=== PATIENT | male | born 1980 | race Two or more races ===

== ENCOUNTER 2022-10-28 05:45 | Emergency (ER) | payer MEDICAID, OTHER ==
[~2022-10-28] VITALS: Ht 180.3 cm; Wt 120.0 kg
[2022-10-28 07:02] LABS: Basophils # (auto) 0.1 10 ^3/uL (0-0.2); Basophils % (auto) 0.5 % (0.0-2.0); Eosinophils # (auto) 0.2 10 ^3/uL (0-0.8); Eosinophils % (auto) 1.4 % (0.0-7.0); Hematocrit 39.2 % (41.0-53.0); Hemoglobin 13.9 g/dL (13.5-17.5); Lymphocytes # (auto) 2.2 10 ^3/uL (0.4-5.4); Lymphocytes % (auto) 19.6 % (10.0-50.0); Mean Corpuscular Hemoglobin 29.5 pg (28.0-32.0); Mean Corpuscular Hgb Conc. 35.3 g/dL (32.0-36.0); Mean Corpuscular Volume 83.5 fL (80.0-100.0); Monocytes # (auto) 1.4 10 ^3/uL (0-1.3); Monocytes % (auto) 12.4 % (0.0-12.0); Neutrophils # (auto) 7.3 10 ^3/uL (1.6-8.6); Neutrophils % (auto) 66.1 % (37.0-80.0); Nucleated Red Blood Cells % 0.5 %; Red Cell Distribution Width 13.1 % (11.8-14.3)
[2022-10-28 07:21] LABS: INR 1.01 (0.9-1.15); Partial Thromboplastin Time 26.6 sec (24.6-33.4)
[2022-10-28 07:26] LABS: Calcium 8.9 mg/dL (8.5-10.1); Magnesium 1.9 mg/dL (1.6-2.6); Potassium 3.6 mmol/L (3.5-5.1)
[2022-10-28 07:49] LABS: BUN/Creatinine Ratio 15.8 (10.0-20.0); Bilirubin, Total 0.6 mg/dL (0.2-1.0); Total Protein 7.2 g/dL (6.4-8.2)
[2022-10-28 08:43] LABS: Urine Bacteria FEW /hpf (None Seen); Urine Blood Negative /uL (Negative); Urine Hyaline Cast FEW /lpf (0 - 2); Urine Specific Gravity 1.021 (1.001-1.035); Urine WBC 1 /hpf (0 - 3)
[2022-10-28 09:25] LABS: Amphetamine Screen, Urine NEGATIVE (NEGATIVE); Barbiturate Scree,Urine NEGATIVE (NEGATIVE); Benzodiazephine Screen, Urine NEGATIVE (NEGATIVE); Cannabinoid Screen, Urine NEGATIVE (NEGATIVE); Cocaine Screen, Urine NEGATIVE (NEGATIVE); Opiate Scree,Urine NEGATIVE (NEGATIVE); Phencyclidine Screen, Urine NEGATIVE (NEGATIVE)
[2022-10-28 09:33] VITALS: BP 131/81
== END 2022-10-28 09:45 | disposition home or self-care (01) ==
LOC: ER 05:45 → EDBD 05:45 → ER 09:45
DX: I47.1 Supraventricular tachycardia (principal); I10 Essential (primary) hypertension; E78.5 Hyperlipidemia, unspecified; E11.9 Type 2 diabetes mellitus without complications
CPT/HCPCS: 36415; 71045; 80053; 80307; 81001; 83735; 83880; 84484; 85025; 85610; 85730; 93005

== ENCOUNTER 2023-06-08 04:03 | Emergency (ER) | payer MEDICAID, OTHER ==
[~2023-06-08] VITALS: Ht 180.3 cm; Wt 111.0 kg
[2023-06-08 04:15] VITALS: PULSE 185; RESP 26; O2SAT 96
[2023-06-08 04:23] LABS: Basophils # (auto) 0.1 10 ^3/uL (0-0.2); Basophils % (auto) 0.5 % (0.0-2.0); Eosinophils # (auto) 0.3 10 ^3/uL (0-0.8); Eosinophils % (auto) 3.2 % (0.0-7.0); Hematocrit 44.7 % (41.0-53.0); Hemoglobin 15.7 g/dL (13.5-17.5); Lymphocytes # (auto) 3.2 10 ^3/uL (0.4-5.4); Lymphocytes % (auto) 29.6 % (10.0-50.0); Mean Corpuscular Hemoglobin 29.7 pg (28.0-32.0); Monocytes # (auto) 1.2 10 ^3/uL (0-1.3); Monocytes % (auto) 10.8 % (0.0-12.0); Neutrophils # (auto) 6.1 10 ^3/uL (1.6-8.6); Neutrophils % (auto) 55.9 % (37.0-80.0); Nucleated Red Blood Cells % 0.1 %; Red Blood Cells 5.26 10^6/uL (4.5-5.90); Red Cell Distribution Width 13.2 % (11.8-14.3); White Blood Cell 10.9 10^3/uL (4.4-10.8)
[2023-06-08 04:42] LABS: INR 0.98 (0.9-1.15); Partial Thromboplastin Time 26.4 SEC (24.5-34.5); Prothrombin Time 10.3 sec (9.3-11.8)
[2023-06-08 04:47] LABS: Alanine Aminotransferase 27 U/L (7-40); Albumin 4.6 g/dL (3.2-4.8); Alkaline Phosphatase 73 U/L (46-116); Anion Gap 5 (5-15); Aspartate Aminotransferase 30 U/L (13-40); BUN/Creatinine Ratio 9.7 (10.0-20.0); Blood Urea Nitrogen 11 mg/dL (9-23); Calcium 9.6 mg/dL (8.7-10.4); Carbon Dioxide 28 mmol/L (20-30); Chloride 103 mmol/L (98-107); Glucose 172 mg/dL (74-106); Potassium 3.5 mmol/L (3.5-5.1); Sodium 136 mmol/L (136-145)
[2023-06-08 04:48] LABS: Bilirubin, Total 0.6 mg/dL (0.2-1.0); Total Protein 7.5 g/dL (5.7-8.2)
[2023-06-08 05:00] VITALS: BP 112/77; PULSE 69; RESP 19; O2SAT 95
== END 2023-06-08 05:05 | disposition home or self-care (01) ==
LOC: ER 04:03
DX: I47.10 Supraventricular tachycardia, unspecified (principal); E11.9 Type 2 diabetes mellitus without complications; I10 Essential (primary) hypertension
CPT/HCPCS: 36415; 80053; 83880; 84484; 85025; 85610; 85730; 93005

== ENCOUNTER 2023-09-14 02:22 | Emergency (ER) | payer OTHER ==
[~2023-09-14] VITALS: Ht 167.6 cm; Wt 100.0 kg
[2023-09-14 03:33] LABS: Urine Bacteria None Seen /hpf (None Seen)
[2023-09-14 03:42] LABS: Basophils # (auto) 0 10 ^3/uL (0-0.2); Basophils % (auto) 0.5 % (0.0-2.0); Eosinophils # (auto) 0.3 10 ^3/uL (0-0.8); Eosinophils % (auto) 4.2 % (0.0-7.0); Hematocrit 41.3 % (41.0-53.0); Hemoglobin 14.3 g/dL (13.5-17.5); Lymphocytes % (auto) 24.7 % (10.0-50.0); Mean Corpuscular Hgb Conc. 34.5 g/dL (32.0-36.0); Monocytes # (auto) 0.6 10 ^3/uL (0-1.3); Monocytes % (auto) 8.1 % (0.0-12.0); Neutrophils # (auto) 4.9 10 ^3/uL (1.6-8.6); Neutrophils % (auto) 62.5 % (37.0-80.0); Nucleated Red Blood Cells % 0.1 %; Red Blood Cells 4.92 10^6/uL (4.5-5.90); White Blood Cell 7.9 10^3/uL (4.4-10.8)
[2023-09-14 03:49] LABS: Urine Blood Negative /uL (Negative); Urine Clarity Clear (Clear); Urine Protein, UAD Negative (Negative); Urine Specific Gravity 1.007 (1.001-1.035); Urine Urobilinogen Normal (Negative); Urine WBC <1 /hpf (0 - 3); Urine pH 5.5 (5.0-9.0)
[2023-09-14 03:50] LABS: Urine Color Straw (Yellow)
[2023-09-14 04:02] LABS: Alanine Aminotransferase 42 U/L (7-40); Albumin 4.4 g/dL (3.2-4.8); Alkaline Phosphatase 67 U/L (46-116); Anion Gap 5 (5-15); Aspartate Aminotransferase 52 U/L (13-40); BUN/Creatinine Ratio 12.5 (10.0-20.0); Bilirubin, Total 0.5 mg/dL (0.2-1.0); Blood Urea Nitrogen 13 mg/dL (9-23); Calcium 10.1 mg/dL (8.7-10.4); Carbon Dioxide 30 mmol/L (20-30); Chloride 101 mmol/L (98-107); Glucose 221 mg/dL (74-106); Potassium 3.7 mmol/L (3.5-5.1); Sodium 136 mmol/L (136-145); Total Protein 7.2 g/dL (5.7-8.2)
[2023-09-14] MEDS ORDERED: METO25TA93 PO (04:31)
[2023-09-14] MEDS ORDERED: LOSA-534 PO (04:31)
[2023-09-14 05:01] VITALS: BP 140/94; PULSE 94; RESP 18; TEMP 98.8; O2SAT 95
== END 2023-09-14 05:03 | disposition home or self-care (01) ==
LOC: ER 02:22 → EDBD 02:22 → ER 05:03
DX: I47.19 Other supraventricular tachycardia (principal); I10 Essential (primary) hypertension; E11.9 Type 2 diabetes mellitus without complications
CPT/HCPCS: 36415; 71045; 80053; 81001; 84484; 85025; 93005

== ENCOUNTER 2023-11-03 09:15 | Inpatient (IN) | payer OTHER ==
[~2023-11-03] VITALS: Ht 182.9 cm; Wt 112.8 kg
[~2023-11-03 09:15] MED LIST: LOSA-534 PO; METO25TA93 PO
[2023-11-03 09:23] VITALS: PULSE 206; RESP 15; O2SAT 95
[2023-11-03] MEDS: dilTIAZem 125mg/125ml BAG KIT 100 ML IV SCH (09:30)
[2023-11-03] MEDS: dilTIAZem 25 MG/5 ML VIAL IV ONE ×2 (09:36→09:37)
[2023-11-03] MEDS: dilTIAZem 125mg/125ml BAG KIT 125 ML IV ONE (09:39)
[2023-11-03] MEDS: SODIUM CHLORIDE 0.9% 1,000 ML IV ONE ×2 (09:45→10:37)
[2023-11-03 10:10] LABS: Basophils # (auto) 0.1 10 ^3/uL (0-0.2); Basophils % (auto) 0.6 % (0.0-2.0); Eosinophils # (auto) 0.4 10 ^3/uL (0-0.8); Eosinophils % (auto) 4.2 % (0.0-7.0); Hematocrit 43.9 % (41.0-53.0); Hemoglobin 15.1 g/dL (13.5-17.5); Lymphocytes # (auto) 2.5 10 ^3/uL (0.4-5.4); Lymphocytes % (auto) 24.6 % (10.0-50.0); Mean Corpuscular Hemoglobin 29.6 pg (28.0-32.0); Mean Corpuscular Hgb Conc. 34.3 g/dL (32.0-36.0); Mean Corpuscular Volume 86.2 fL (80.0-100.0); Monocytes % (auto) 10.2 % (0.0-12.0); Neutrophils # (auto) 6.2 10 ^3/uL (1.6-8.6); Neutrophils % (auto) 60.4 % (37.0-80.0); Nucleated Red Blood Cells % 0.2 %; Red Blood Cells 5.09 10^6/uL (4.5-5.90); Red Cell Distribution Width 12.9 % (11.8-14.3); White Blood Cell 10.3 10^3/uL (4.4-10.8)
[2023-11-03 10:25] LABS: Chloride 104 mmol/L (98-107); Potassium 4.1 mmol/L (3.5-5.1); Sodium 137 mmol/L (136-145)
[2023-11-03 10:26] LABS: Anion Gap 7 (5-15); Calcium 10.3 mg/dL (8.5-10.1); Carbon Dioxide 26 mmol/L (20-30)
[2023-11-03 10:31] LABS: BUN/Creatinine Ratio 9.2 (10.0-20.0); Blood Urea Nitrogen 11 mg/dL (9-23); Glucose 186 mg/dL (74-106)
[2023-11-03] MEDS: ASPirin 325 MG TAB PO ONE (10:39)
[2023-11-03] MEDS: NITROGLYCERIN 0.4 MG SL TAB SL ONE (10:40)
[2023-11-03] MEDS ORDERED: HYDROmorphone HCL 2 MG/ML VL/or syr IV PRN ×2 (14:15→14:30)
[2023-11-03] MEDS ORDERED: dilTIAZem 25 MG/5 ML VIAL IV PRN ×2 (14:15→14:30)
[2023-11-03] MEDS ORDERED: DOCUSATE SOD 100 MG CAP PO PRN ×2 (14:15→14:30)
[2023-11-03] MEDS ORDERED: ONDANSETRON HCL 4 MG/2 ML VIAL IV PRN ×2 (14:15→14:30)
[2023-11-03] MEDS ORDERED: LEVOTHYROXINE SODIUM 50 MCG TAB PO ONE (14:15)
[2023-11-03] MEDS ORDERED: HYDROcodone-ACET 5/325MG TAB PO PRN ×2 (14:15→14:30)
[2023-11-03] MEDS ORDERED: METOPROLOL TARTRATE 25 MG TAB PO SCH (14:15)
[2023-11-03] MEDS ORDERED: ACETAMINOPHEN 325 MG TAB PO PRN ×2 (14:15→14:30)
[2023-11-03] MEDS: ENOXAPARIN SOD 100 MG/1 ML SYRINGE SC ONE (15:03)
[2023-11-03 15:16] LABS: Urine Bacteria None Seen /hpf (None Seen)
[2023-11-03] MEDS: LEVOTHYROXINE SODIUM 25 MCG TAB PO ONE (15:35)
[2023-11-03 15:38] LABS: Amphetamine Screen, Urine Neg (NEGATIVE); Barbiturate Scree,Urine Neg (NEGATIVE); Benzodiazephine Screen, Urine Neg (NEGATIVE); Cocaine Screen, Urine Neg (NEGATIVE); Opiate Scree,Urine Neg (NEGATIVE)
[2023-11-03 15:39] LABS: Cannabinoid Screen, Urine Neg (NEGATIVE); Phencyclidine Screen, Urine Neg (NEGATIVE)
[2023-11-03] MEDS ORDERED: OME20T PO (15:40)
[2023-11-03] MEDS ORDERED: LOSA-534 PO (15:40)
[2023-11-03] MEDS ORDERED: ROSU20TA14 PO (15:40)
[2023-11-03] MEDS ORDERED: LEVO125T7 PO (15:40)
[2023-11-03] MEDS ORDERED: ALLO100T PO (15:40)
[2023-11-03] MEDS ORDERED: METF-371 PO (15:40)
[2023-11-03] MEDS ORDERED: METO-289 PO (15:40)
[2023-11-03 15:44] LABS: Magnesium 1.6 mg/dL (1.6-2.6); Triglycerides 584 mg/dL (< 150)
[2023-11-03 15:45] LABS: Urine Blood Negative /uL (Negative); Urine Clarity Clear (Clear); Urine Color Light-Yellow (Yellow); Urine Mucus FEW (None Seen); Urine Protein, UAD Negative (Negative); Urine Specific Gravity 1.017 (1.001-1.035); Urine Urobilinogen Normal (Negative); Urine WBC 1 /hpf (0 - 3)
[2023-11-03 15:46] LABS: Cholesterol 175 mg/dL (< 200); HDL Cholesterol 36 mg/dL (40-59)
[2023-11-03] MEDS: MAGNESIUM SULFATE 1GM/100ML 100 ML IV SCH (17:04)
[2023-11-03 22:00] VITALS: BP 125/83; PULSE 68; RESP 14; TEMP 98.6; O2SAT 96
[2023-11-03] MEDS ORDERED: SODIUM CHLOR 0.9% PF (SALINE LOCK) 10ML VIAL/SYR IV SCH (22:00)
[2023-11-03 22:18] VITALS: BP 125/83; PULSE 68; RESP 14; TEMP 98.6; O2SAT 98
[2023-11-03 22:47] VITALS: BP 125/83; PULSE 68; RESP 14; TEMP 98.6; O2SAT 98
[2023-11-03] MEDS ORDERED: GLIP5TAB21 PO (22:56)
[2023-11-03] MEDS: ATORVASTATIN 20 MG TAB PO SCH (23:19)
[2023-11-03] MEDS: METOPROLOL TARTRATE 25 MG TAB PO SCH (23:20)
[2023-11-03] MEDS: SODIUM CHLOR 0.9% PF (SALINE LOCK) 10ML VIAL/SYR IV SCH (23:23)
[2023-11-04 01:00] VITALS: BP 146/88; PULSE 76; RESP 16; TEMP 98.2; O2SAT 95
[2023-11-04 05:00] VITALS: BP 118/73; PULSE 64; RESP 14; TEMP 98.3; O2SAT 96
[2023-11-04 07:23] LABS: Basophils # (auto) 0 10 ^3/uL (0-0.2); Basophils % (auto) 0.4 % (0.0-2.0); Eosinophils # (auto) 0.3 10 ^3/uL (0-0.8); Eosinophils % (auto) 4.4 % (0.0-7.0); Hematocrit 38.8 % (41.0-53.0); Hemoglobin 13.6 g/dL (13.5-17.5); Lymphocytes # (auto) 1.9 10 ^3/uL (0.4-5.4); Lymphocytes % (auto) 27.4 % (10.0-50.0); Mean Corpuscular Hemoglobin 29.5 pg (28.0-32.0); Mean Corpuscular Volume 84.2 fL (80.0-100.0); Monocytes # (auto) 0.6 10 ^3/uL (0-1.3); Monocytes % (auto) 9.4 % (0.0-12.0); Neutrophils % (auto) 58.4 % (37.0-80.0); Red Blood Cells 4.61 10^6/uL (4.5-5.90); Red Cell Distribution Width 12.9 % (11.8-14.3); White Blood Cell 6.8 10^3/uL (4.4-10.8)
[2023-11-04 07:38] LABS: Alanine Aminotransferase 37 U/L (7-40); Anion Gap 7 (5-15); Aspartate Aminotransferase 54 U/L (13-40); BUN/Creatinine Ratio 12.9 (10.0-20.0); Blood Urea Nitrogen 12 mg/dL (9-23); Calcium 9.5 mg/dL (8.5-10.1); Carbon Dioxide 25 mmol/L (20-30); Chloride 106 mmol/L (98-107); Glucose 149 mg/dL (74-106); Magnesium 1.9 mg/dL (1.6-2.6); Potassium 3.9 mmol/L (3.5-5.1); Sodium 138 mmol/L (136-145)
[2023-11-04 08:00] VITALS: PULSE 64
[2023-11-04] MEDS: ENOXAPARIN SOD 40 MG/0.4 ML SYRINGE SC SCH (09:16)
[2023-11-04] MEDS: LOSARTAN POTASSIUM 50 MG TAB PO SCH (09:17)
[2023-11-04] MEDS: MAGNESIUM SULFATE 1GM/100ML 100 ML IV ONE (09:18)
[2023-11-04 09:20] VITALS: BP 132/82; PULSE 71; RESP 16; TEMP 97.5; O2SAT 95
[2023-11-04] MEDS ORDERED: LOSARTAN POTASSIUM 50 MG TAB PO SCH (10:00)
[2023-11-04] MEDS ORDERED: ENOXAPARIN SOD 40 MG/0.4 ML SYRINGE SC SCH (10:00)
[2023-11-04 13:23] VITALS: BP 139/90; PULSE 72; RESP 18; TEMP 98.3; O2SAT 97
== END 2023-11-04 14:40 | disposition home or self-care (01) | DRG 282 ==
LOC: ER 09:15 → TELE 14:10 → ER 14:10 → TELE-WESTW 22:18
PROVIDERS: ADMIT Internal Medicine; ATTEND Internal Medicine
DX: I47.19 Other supraventricular tachycardia (principal); I21.A1 Myocardial infarction type 2; M10.9 Gout, unspecified; I10 Essential (primary) hypertension; E66.01 Morbid (severe) obesity due to excess calories; E03.9 Hypothyroidism, unspecified; E11.9 Type 2 diabetes mellitus without complications; K21.9 Gastro-esophageal reflux disease without esophagitis; E83.42 Hypomagnesemia; E78.1 Pure hyperglyceridemia; F10.10 Alcohol abuse, uncomplicated; Y90.9 Presence of alcohol in blood, level not specified; Z79.899 Other long term (current) drug therapy; Z68.33 Body mass index [BMI] 33.0-33.9, adult; Z71.41 Alcohol abuse counseling and surveillance of alcoholic
CPT/HCPCS: 36415; 71045; 80048; 80061; 80307; 81001; 83036; 83735; 84439; 84443; 84450; 84460; 84484; 85025; 93306; 99291; G0378

== ENCOUNTER 2024-10-17 19:24 | Emergency (ER) | payer OTHER ==
[~2024-10-17] VITALS: Ht 180.3 cm; Wt 109.0 kg
[~2024-10-17 19:24] MED LIST changes: +ALLO100T PO; +GLIP5TAB21 PO; +LEVO125T7 PO; +METF-371 PO; +METO-289 PO; -METO25TA93 PO; +OME20T PO; +ROSU20TA14 PO
[2024-10-17 19:45] VITALS: TEMP 99.2
[2024-10-17] MEDS: SODIUM CHLORIDE 0.9% 1,000 ML IV ONE ×2 (19:45→22:11)
[2024-10-17] MEDS: METOPROLOL TARTRATE 1MG/1ML-5ML VIAL IV SCH (19:45)
--- NOTE | 2024-10-17 19:46 | ED.PDOC ---
HPI Comments 44-year-old male who came to ER for palpitations. History of hypertension, diabetes and SVTs. Patient claims he has good compliance to his medications. About 45 minutes prior to arrival, patient bent over to mushroom picker something when he developed sudden onset left sided chest pains, sharp, constant, non radiating, 7/10 intensity, associated with palpitations. Denies any shortness of breath. Heart rate monitored was over 200 bpm Chief Complaint: Palpitations Time Seen by MD: 19:45 Reviewed Notes: Nurses Notes Allergies: Coded Allergies: NO KNOWN ALLERGIES (Unverified , 10/28/22) Home Meds Reported Medications Glipizide (Glipizide) 5 Mg Tab, 5 MG PO DAILYPRN, TAB 11/03/23 Levothyroxine Sodium (Levothyroxine Sodium) 125 Mcg Tab, 125 MCG PO QAM for 30 Days, MCG 11/03/23 Metformin Hydrochloride (Metformin Hcl) 850 Mg Tab, 850 MG PO BID for 30 Days, MG 11/03/23 Allopurinol (Allopurinol) 100 Mg Tab, 100 MG PO DAILY, MG 11/03/23 Losartan Potassium (Losartan Potassium) 50 Mg Tab, 50 MG PO BID for 30 Days, MG 11/03/23 Metoprolol Succinate (Metoprolol Succinate Er) 50 Mg Tab, 1 TAB PO BID, #30 TAB 5 Refills 11/03/23 Omeprazole (Omeprazole) 20 Mg Cap, 20 MG PO DAILY, CAP 11/03/23 Rosuvastatin Calcium (Crestor) 20 Mg Tab, 1 TAB PO DAILY, #30 TAB 5 Refills 11/03/23 Information Source: Patient Mode of Arrival: EMS Severity: Moderate Timing: Minutes Duration: Since onset Location: Chest (L) Radiation: No Radiation Quality: Sharp Onset: With Light Exertion Cardiac Risk Factors: HTN, Diabetes, Other (SVT) History of: Similar pain in past Associated Signs and Symptoms: Palpitations Review of Systems REVIEW OF SYSTEMS: No fever, no chills, or fatigue HEENT: No sore throat, no earache, no congestion, no neck pain. Cardiac: (+) chest pain. (+) palpitations. Lungs: No shortness of breath, no cough. GI: No nausea, no vomiting, no diarrhea, no constipation, no abdominal pain : No dysuria, frequency, or urgency. No hematuria. Musculoskeletal: No joint pain , no joint swelling, no extremity edema. Skin: No rash, no itching. Neuro: No headache, no dizziness, no weakness Vital Signs Vital Signs Date Time Temp Pulse Resp B/P (MAP) Pulse Ox O2 Delivery O2 Flow Rate FiO2 10/17/24 23:39 80 15 102/63 (76) 96 10/17/24 19:55 Room Air* 0 21 10/17/24 19:45 99.2 99.2 Physical Exam General: Awake, alert and oriented. No acute distress. Skin: Skin in warm, dry and intact. Appropriate color for ethnicity. Nailbeds pink with no cyanosis. HEENT: The head is normocephalic and atraumatic. Conjunctivae are clear without exudates or hemorrhage. Sclera is non-icteric. EOM are intact. No signs of nystagmus. Eyelids are normal in appearance without swelling or lesions. Oral mucosa is pink and moist Neck: The neck is supple with normal range of motion. No JVD. Cardiac: Heart rate rapid. Regular rhythm. No murmurs, gallops, or rubs are auscultated. Respiratory: No signs of respiratory distress. Lung sounds are clear in all lobes bilaterally without rales, rhonchi, or wheezes. Abdominal: Abdomen is soft, non-tender without distention. Bowel sounds are present and normoactive in all four quadrants. Extremities: Upper and lower extremities are atraumatic in appearance without deformity or edema. Neurological: The patient is awake, alert and oriented to person, place, and time with normal speech. Speech is clear. There is no facial asymmetry. Psychiatric: Appropriate mood and affect. Good judgement and insight. No visual or auditory hallucinations. Past Medical History PAST MEDICAL HISTORY: DM, Gout, HTN Past Medical History (Other): SVTs Surgical History: Denies all surgeries Family History Family History: Reviewed,noncontributory to illness Social History Smoker: Non-Smoker Alcohol: Denies ETOH Use Drugs: Denies Drug Use Lives In: Home EKG EKG : Pulse Rate (adult): 195 Cardiac Rhythm: PSVT Was a procedure done? Was a procedure done?: No CP Differential Dx Differential Diagnosis: A-fib, Angina, Anxiety / Panic Attack, Electrolyte Disorder, Hyperthyroidism, Hyperventilation, PSVT, Sinus Tachycardia, V-Fib, V- Tach X-Ray, Labs, Meds, VS Vital Signs Date Time Temp Pulse Resp B/P (MAP) Pulse Ox O2 Delivery O2 Flow Rate FiO2 10/17/24 23:39 80 15 102/63 (76) 96 10/17/24 21:00 86 19 92/62 (72) 92 10/17/24 20:00 100 20 102/59 (73) 92 10/17/24 19:55 200 20 95 Room Air* 0 21 10/17/24 19:46 195 10/17/24 19:45 99.2 200 20 107/61 (76) 95 99.2 10/17/24 19:45 200 107/61 10/17/24 19:38 98.3 202 16 120/57 (78) 94 98.3 10/17/24 19:35 195 Lab Test 10/17/24 23:02 10/17/24 22:08 10/17/24 21:54 10/17/24 20:56 Range/Units Troponin I High Sensitivity 12 7 </=54 ng/L POC Glucose 174 H 70-106 mg/dl Blood Gas Specimen Type Arterial Blood Gas Sample Site Right radial Blood Gas Patient Temperature 37.0 Arterial Blood Date Drawn [id number] Arterial Blood pH 7.382 7.350-7.450 Arterial Blood Partial Pressure CO2 34.6 L 35.0-48.0 mmHg Arterial Blood Partial Pressure O2 93.0 83.0-108.0 mmHg Arterial Blood HCO3 20.1 L 21.0-28.0 mmol/L Arterial Blood Oxygen Saturation 96.6 94.0-98.0 % Arterial Blood Base Excess -4.1 L -2.0-3.0 mmol/L Arterial Blood Oxyhemoglobin 95.5 94.0-98.0 % Arterial Blood Carboxyhemoglobin 0.6 0.5-1.5 % Arterial Blood Methemoglobin 0.5 0.0-1.5 % Jameson Test Yes Blood Gas Total Hemoglobin 14.70 13.5-17.5 g/dL Blood Gas Modality Nasal cannula FiO2 % 28.0 Magnesium Level 1.7 1.6-2.6 mg/dL Beta-Hydroxybutyric Acid 0.191 < 0.4 mmol/L Test 10/17/24 19:53 Range/Units White Blood Count 9.7 4.4-10.8 10^3/uL Red Blood Count 5.30 4.5-5.90 10^6/uL Hemoglobin 15.7 13.5-17.5 g/dL Hematocrit 44.3 41.0-53.0 % Mean Corpuscular Volume 83.5 80.0-100.0 fL Mean Corpuscular Hemoglobin 29.6 28.0-32.0 pg Mean Corpuscular Hemoglobin Concent 35.4 32.0-36.0 g/dL Red Cell Distribution Width 12.9 11.8-14.3 % Platelet Count 293 140-450 10^3/uL Mean Platelet Volume 7.7 6.9-10.8 fL Neutrophils (%) (Auto) 58.3 37.0-80.0 % Lymphocytes (%) (Auto) 26.8 10.0-50.0 % Monocytes (%) (Auto) 12.1 H 0.0-12.0 % Eosinophils (%) (Auto) 2.2 0.0-7.0 % Basophils (%) (Auto) 0.6 0.0-2.0 % Neutrophils # (Auto) 5.6 1.6-8.6 10 ^3/uL Lymphocytes # (Auto) 2.6 0.4-5.4 10 ^3/uL Monocytes # (Auto) 1.2 0-1.3 10 ^3/uL Eosinophils # (Auto) 0.2 0-0.8 10 ^3/uL Basophils # (Auto) 0.1 0-0.2 10 ^3/uL Nucleated Red Blood Cells 0.1 % Sodium Level 139 136-145 mmol/L Potassium Level 3.8 3.5-5.1 mmol/L Chloride Level 105 98-107 mmol/L Carbon Dioxide Level 18 L 20-31 mmol/L Anion Gap 16 H 5-15 Blood Urea Nitrogen 24 H 9-23 mg/dL Creatinine 1.35 H 0.700-1.30 mg/dL Glomerular Filtration Rate Calc 66 >90 mL/min BUN/Creatinine Ratio 17.8 10.0-20.0 Serum Glucose 234 H 74-106 mg/dL Calcium Level 10.6 H 8.7-10.4 mg/dL Troponin I High Sensitivity 6 </=54 ng/L B-Type Natriuretic Peptide 7.30 0-100 pg/mL Current Medications Medications (Trade) Dose Ordered Sig/Herminio Route Start Time Stop Time Status Last Admin Sodium Chloride 1,000 ml @ 1,000 mls/hr Q1H ONCE IV 10/17/24 19:45 10/17/24 20:44 DC 10/17/24 19:45 Adenosine (Adenosine) 6 mg ONCE ONCE IV 10/17/24 19:55 10/17/24 20:15 DC 10/17/24 19:55 Sodium Chloride 1,000 ml @ 1,000 mls/hr Q1H ONCE IV 10/17/24 22:00 10/17/24 22:59 DC 10/17/24 22:11 Diagnostic Test (Pha) (Accu-Chek Comfort Curve T) 1 strip ONCE STAT 10/17/24 21:46 10/17/24 21:55 DC 10/17/24 22:09 CHEST RADIOGRAPH Indication: CHEST PAIN Technique: Single frontal view of the chest was obtained COMPARISON: XY CHEST PORTABLE on DOS: 11/03/23 FINDINGS: Lines and Tubes: None Lungs: Clear Pleura: No effusion. No pneumothorax. Cardiomediastinal contours: Unremarkable IMPRESSION: No abnormality. Time of 1ST Reevaluation: 19:40 Reevaluation 1ST: Unchanged Patient Education/Counseling: Need For Follow Up Family Education/Counseling: Need For Follow Up Departure 1 Departure Time of Disposition: 21:48 Impression: Primary Impression: Paroxysmal SVT (supraventricular tachycardia) Additional Impressions: Hyperglycemia JETT (acute kidney injury) Disposition: 01 HOME / SELF CARE / HOMELESS Condition: Fair Additional Instructions: ED DISCHARGE INSTRUCTIONS Instructions: Please read all instructions provided in this packet carefully. Continued to take all medications for SVT and diabetes as prescribed. Although you have been discharged from the Emergency Department, this does not mean that you have a "clean bill of health". No definitive diagnosis for your symptoms has been made today. It is possible that you are in the process of developing a serious illness. This is why you must return to the ED without fail if any new or worsening symptoms (especially if your symptoms include chest pain, trouble breathing, abdominal pain, fever, headache, confusion, trouble seeing, or trouble walking) It is also very important that you see a primary care doctor within the next 1-3 days to follow up. Your oxygen level drops to 88-89% while you were sleeping. It is important that you follow up with the primary care provider to schedule a sleep study. If you are unable to get an appointment, return to the ED for re-evaluation. PALPITATIONS EDUCATION Heart palpitations are the uncomfortable sensation that your heart is beating fast or irregularly. You might feel pounding or fluttering in your chest. It might feel like your heart is skipping a beat. Palpitations may be caused by a heart problem. But they also occur because of many other things. These include other health problems, stress, exercise, or use of alcohol, caffeine, or nicotine. Some prescription medicines and glyl-rnw-zqbsihp medicines can also cause heart palpitations. Nearly everyone has palpitations from time to time. Depending on your symptoms, your doctor may need to do more tests to try to find the cause of your palpitations. Follow-up care is a lerner part of your treatment and safety. Be sure to make and go to all appointments, and call your doctor if you are having problems. It's also a good idea to know your test results and keep a list of the medicines you take. How can you care for yourself at home? If they trigger palpitations, limit or avoid alcohol or caffeine. Do not smoke. If you need help quitting, talk to your doctor about stop-smoking programs and medicines. These can increase your chances of quitting for good. Ask your doctor whether you can take yekk-oqu-dyhuqte medicines (such as decongestants). These may cause palpitations. If you think you may have a problem with drug use, talk to your doctor. Certain drugs, such as cocaine and methamphetamine, can affect your heart rate and rhythm. If you have palpitations again, take deep breaths and try to relax. Or try any physical things that your doctor recommended. These may include bearing down or coughing. If you start to feel lightheaded, sit or lie down to avoid injuries that might result if you pass out and fall down. If your doctor recommends it, keep a record of your palpitations and bring it to your next doctor's appointment. Write down: The date and time. Your pulse. (If your heart is beating fast, it may be hard to count your pulse.) If your heart rhythm was regular or irregular. What you were doing when the palpitations started. How long the palpitations lasted. Any other symptoms. What may have helped your symptoms go away. If an activity causes palpitations, slow down or stop. Talk to your doctor before you do that activity again. Take your medicines exactly as prescribed. Call your doctor if you think you are having a problem with your medicine. When should you call for help? Call 911 anytime you think you may need emergency care. For example, call if: You passed out (lost consciousness). You have symptoms of a heart attack. These may include: Chest pain or pressure, or a strange feeling in the chest. Sweating. Shortness of breath. Pain, pressure, or a strange feeling in the back, neck, jaw, or upper belly or in one or both shoulders or arms. Lightheadedness or sudden weakness. A fast or irregular heartbeat. After you call 911, the laser set up operator may tell you to chew 1 adult-strength or 2 to 4 low-dose aspirin. Wait for an ambulance. Do not try to drive yourself. You have symptoms of a stroke. These may include: Sudden numbness, tingling, weakness, or loss of movement in your face, arm, or leg, especially on only one side of your body. Sudden vision changes. Sudden trouble speaking. Sudden confusion or trouble understanding simple statements. Sudden problems with walking or balance. A sudden, severe headache that is different from past headaches. Call your doctor now or seek immediate medical care if: You have heart palpitations and: Are dizzy or lightheaded, or you feel like you may faint. Have new or increased shortness of breath. Watch closely for changes in your health, and be sure to contact your doctor if: You continue to have heart palpitations. Current as of: January 08, 2024 Author: [employer] collado Staff? Diabetes: Preventing High Blood Sugar Emergencies Introduction High blood sugar in diabetes occurs when the sugar (glucose) level in the blood rises above normal. It is also called hyperglycemia. When you have diabetes, high blood sugar may be caused by not getting enough insulin or missing your diabetes medicine. It may also be caused by eating too much food, skipping exercise, or being ill or stressed. Unlike low blood sugar, high blood sugar usually happens slowly over hours or days. Blood sugar levels above your target range may make you feel tired and thi rsty. If your blood sugar keeps rising, your kidneys will make more urine and you can get dehydrated . Signs of dehydration include being thirstier than usual and having darker urine than usual. Without treatment, severe dehydration can be life-threatening. Over time, high blood sugar can damage the eyes, heart, kidneys, blood vessels, and nerves. Watch for symptoms of high blood sugar. Symptoms include feeling very tired or thirsty and urinating more often than usual. As long as you notice the symptoms, you will probably have time to treat high blood sugar so that you can prevent an emergency. Three things can help you prevent high blood sugar problems: Test your blood sugar often, especially if you are sick or not following your normal routine. Testing lets you see when your blood sugar is above your target range, even if you don't have symptoms. Then you can treat it early. Call your doctor if you often have high blood sugar or your blood sugar is often above your target range. Your medicine may need to be adjusted or changed. Drink extra water or drinks that don't have caffeine or sugar to prevent dehydration. How do you prevent high blood sugar emergencies? Treat infections early Infections that aren't treated (such as urinary tract infections, pneumonia, and skin infections) can raise your risk for a high blood sugar emergency. Be prepared Know the symptoms of high blood sugar. They include feeling very thirsty, feeling very tired, and urinating more than usual. Post a list of the symptoms in a place where you can see it often, such as on your refrigerator door. Add any symptoms you have noticed that may not be on the list. Make sure other people know the symptoms. Teach them what to do in case of an emergency. Check your blood sugar at home often, especially if you are sick or not following your normal routine. If you don't have a blood sugar meter, talk with your doctor about getting one. It is easy to miss the early symptoms, especially if you urinate more than usual but aren't more thirsty. Testing your blood sugar at home will help you know when it is high, even if you don't notice symptoms. Teach others (at work and at home) the symptoms of high blood sugar. Teach them to call 911 if you are unconscious or too sick to check your own blood sugar. Wear medical identification. Have a medical alert bracelet or other form of medical jewelry with you at all times. This is very important in case you are too sick or injured to speak for yourself. You can find medical identification at a drugstore or on the Internet. If you take insulin, test for ketones, especially if your blood sugar is high. Make a plan. Usually people who take insulin need to take extra fast-acting insulin when their blood sugar levels are high. Talk with your doctor about how much to take. This depends on your blood sugar level (sliding scale). Take your medicines as prescribed. Don't skip diabetes medicine or insulin doses without first talking with your doctor. Treat high blood sugar early The best way to prevent high blood sugar emergencies is to treat high blood sugar as soon as you have symptoms or when your blood sugar is well above your target range (for example, 200 mg/dL or higher). Follow your doctor's instructions for the steps for dealing with high blood sugar. Post the steps in a handy place at home and work. Make sure other people know what to do if you are unable to treat high blood sugar. Keep a record of high blood sugar levels. Write down your symptoms and how you treated them. And take the record with you when you see your doctor. Call your doctor. Let your doctor know if you have high blood sugar problems. Your diabetes medicine may need to be adjusted or changed. If you take insulin, your dose of insulin may need to be increased. Drink plenty of liquids If your blood sugar levels are above your target range, drink extra liquids. This helps replace the fluids lost through your urine. Water and sugar-free drinks are best. Avoid caffeinated drinks, alcohol, and soda pop. And avoid other drinks that have a lot of sugar, such as fruit juice. Comments 44-year-old male who presented to the emergency department with palpitations, found to be in SVT. Patient's heart rate converted to sinus after dose of adenosine. Patient found to have JETT, hyperglycemia. Patient requiring 1 L nasal cannula as SBO due drops to 88-89% while sleeping. Patient to be admitted to hospitalist service for further treatment, evaluation and monitoring. Discussed with [facility] physician Dr. Aguilar, request for admission or transfer to [facility] for admission. Recommendation is patient can follow up with primary care provider as blood sugar has improved, patient likely has sleep apnea. Dr. Aguilar will arrange for sleep study. Patient well-appearing, nontoxic. No respiratory distress. Heart rate is improved with treatment in the ED. no ketones. Advised prompt follow-up with PCP, return to the ED with any new, worsening or concerning symptoms. Critical Care Note Critical Care Time?: Yes (35 min-critical care time only) Critical care comment: SVTs, hyperglycemia Stability Stability form required: No Heart Score Heart Score: Heart Score Response (Comments) Value History Moderate Suspicious 1 EKG Repolarization Disturb 1 Age 45-64 1 Risk Factors >3 or Hx ASHD 2 Troponin Normal limit 0 Total 5 I personally scribed for ALPHONSO RILEY MD ([email or web address]) on 10/17/24 at 19:46. Electronically submitted by Aleksey Allen ([email or web address]). I personally scribed for ALPHONSO RILEY MD ([email or web address]) on 10/17/24 at 20:32. Electronically submitted by Aleksey Allen ([email or web address]). ALPHONSO RILEY MD October 17, 2024 19:46
[2024-10-17 19:55] VITALS: PULSE 200; RESP 20; O2SAT 95
[2024-10-17] MEDS: ADENOSINE 6 MG/2 ML INJ IV ONE ×2 (19:55→20:03)
[2024-10-17 20:04] LABS: Basophils # (auto) 0.1 10 ^3/uL (0-0.2); Basophils % (auto) 0.6 % (0.0-2.0); Eosinophils # (auto) 0.2 10 ^3/uL (0-0.8); Eosinophils % (auto) 2.2 % (0.0-7.0); Hematocrit 44.3 % (41.0-53.0); Hemoglobin 15.7 g/dL (13.5-17.5); Lymphocytes # (auto) 2.6 10 ^3/uL (0.4-5.4); Lymphocytes % (auto) 26.8 % (10.0-50.0); Mean Corpuscular Hemoglobin 29.6 pg (28.0-32.0); Mean Corpuscular Hgb Conc. 35.4 g/dL (32.0-36.0); Mean Corpuscular Volume 83.5 fL (80.0-100.0); Monocytes # (auto) 1.2 10 ^3/uL (0-1.3); Monocytes % (auto) 12.1 % (0.0-12.0); Neutrophils # (auto) 5.6 10 ^3/uL (1.6-8.6); Neutrophils % (auto) 58.3 % (37.0-80.0); Nucleated Red Blood Cells % 0.1 %; Platelet Count (auto) 293 10^3/uL (140-450); Red Cell Distribution Width 12.9 % (11.8-14.3); White Blood Cell 9.7 10^3/uL (4.4-10.8)
[2024-10-17 20:12] LABS: Chloride 105 mmol/L (98-107); Potassium 3.8 mmol/L (3.5-5.1); Sodium 139 mmol/L (136-145)
[2024-10-17 20:13] LABS: Anion Gap 16 (5-15)
[2024-10-17] MEDS ORDERED: ADENOSINE 6 MG/2 ML INJ IV ONE (20:15)
[2024-10-17 20:18] LABS: BUN/Creatinine Ratio 17.8 (10.0-20.0); Blood Urea Nitrogen 24 mg/dL (9-23); Calcium 10.6 mg/dL (8.7-10.4); Carbon Dioxide 18 mmol/L (20-31); Glucose 234 mg/dL (74-106)
--- NOTE | 2024-10-17 20:19 | DVH ---
CHEST RADIOGRAPH Indication: CHEST PAIN Technique: Single frontal view of the chest was obtained COMPARISON: XY CHEST PORTABLE on DOS: 11/03/23 FINDINGS: Lines and Tubes: None Lungs: Clear Pleura: No effusion. No pneumothorax. Cardiomediastinal contours: Unremarkable IMPRESSION: No abnormality.
[2024-10-17 21:59] LABS: Base Excess -4.1 mmol/L (-2.0-3.0)
[2024-10-17] MEDS ORDERED: InsuLIN REG 1unit/0.01ml Soln (100units/ml) IV ONE (22:00)
[2024-10-17] MEDS: ACCU-CHEK COMFORT CURVE STRIP VI STA (22:09)
[2024-10-17] MEDS: DEXTROSE (50%) 50ML SYRG IV ONE (22:37)
[2024-10-17 23:39] VITALS: BP 102/63; PULSE 80; RESP 15; O2SAT 96
[2024-10-18] MEDS: DEXTROSE (50%) 50ML SYRG IV ONE (00:03)
[2024-10-18] MEDS ORDERED: ACCU-CHEK COMFORT CURVE STRIP VI ONE (01:00)
--- NOTE | 2024-10-18 07:13 | ECG ---
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
--- NOTE | 2024-10-18 09:50 | ECG ---
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
== END 2024-10-18 00:10 | disposition home or self-care (01) ==
LOC: ER 19:24
DX: I47.19 Other supraventricular tachycardia (principal); E11.65 Type 2 diabetes mellitus with hyperglycemia; I12.9 Hypertensive chronic kidney disease with stage 1 through stage 4 chronic kidney disease, or unspecified chronic kidney disease; N17.9 Acute kidney failure, unspecified; M10.9 Gout, unspecified; Z79.899 Other long term (current) drug therapy
CPT/HCPCS: 36415; 36600; 71045; 80048; 82010; 82805; 82947; 83735; 83880; 84484; 85025; 93005; 96361; 96374; 99285; J0153; J7030; 82962; 99291